=== PATIENT | male | born 1985 | race African-American/Black ===

== ENCOUNTER 2018-04-23 17:48 | Inpatient (IN) | payer OTHER ==
[~2018-04-23] VITALS: Ht 165.1 cm; Wt 71.8 kg
[2018-04-23] VITALS (10 sets, daily range): BP systolic 115–135; BP diastolic 71–109
--- NOTE | ~2018-04-23 | D ---
[facility] [place] [address] DISCHARGE SUMMARY Name: MIKE GROSSMAN Room #: 208-P [facility] IN M.R.#: [id number] Admission: 04/23/18 Attend Phys: Emmanuel Tucker Discharge: 04/24/18 Date of : 81 Report #: [id number] THIS REPORT FOR: //name// CC: Emmanuel Tucker NO PCP DATE OF SERVICE: 04/24/2018 ADMITTING DIAGNOSIS: OR-zbrrsxh-waztfufox myocardial infarction. DISCHARGE DIAGNOSES: 1. CX-vkvfmat-oozwdgxyg myocardial infarction. 2. 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 PROCEDURE PERFORMED: Left heart catheterization. DISCHARGE MEDICATIONS: 1. Aspirin 325 daily. 2. Plavix 75 mg daily. 3. Atorvastatin 80 mg daily. 4. Toprol-XL 25 mg daily. 5. Isosorbide mononitrate 30 mg daily. 6. Sublingual nitroglycerin p.r.n. FOLLOWUP: Dr. Tucker in 3 days. DISCHARGE DIET: [place] [employer] step 1 diet (discussed with the patient). BRIEF CLINICAL HISTORY: See history and physical in the chart. HOSPITAL COURSE: The patient was admitted to the hospital and underwent coronary angiography. The culprit lesion for his presentation was a small nonrevascularizable high-grade lesion in the distal circumflex posterior wall branch. In view of this, he was treated medically with Integrilin, dual antiplatelet therapy. He was initiated on standard treatment. YAHAIRA inhibition was not initiated due to the presence of normal left ventricular function and an inferior wall location. He was allowed to ambulate without difficulty. His pain resolved post-catheterization and he was ambulated without any limitations. Discussions of persistent hospitalization and symptom limited treadmill study was discussed with the patient who felt that he just needed to get out today. Echocardiogram demonstrated no significant wall motion abnormalities and normal contractility. In view of that and in view of his agreement with the followup on Thursday of this coming week, he is being discharged in improved and stable condition to follow up with previous stated instructions and medications. It was discussed with him at length that even though statins have been initiated at [address] [address] DISCHARGE SUMMARY Name: CHAUNCEYMIKE Room #: 208-P [facility] IN M.R.#: [id number] Admission: 04/23/18 Attend Phys: Emmanuel Tucker Discharge: 04/24/18 Date of : 81 Report #: [id number] a high intensity, he clearly will need PSK9 inhibitor therapy to get his LDLs to target. <ELECTRONICALLY SIGNED> By: Emmanuel Tucker MD 04/25/18 0029 1846 0025 Emmanuel Tucker MD /nt
--- NOTE | ~2018-04-23 | H ---
[facility] [place] [address] HISTORY AND PHYSICAL Name: MIKE GROSSMAN Room #: 208-P ADM IN M.R.#: [id number] Admission: 04/23/18 Attend Phys: Emmanuel Tucker Discharge: Date of : 81 Report #: [id number] THIS REPORT FOR: //name// CC: Emmanuel Tucker NO PCP HISTORY OF PRESENT ILLNESS: This is a very pleasant 32-year-old gentleman who was in his state of good health until this afternoon when developed retrosternal discomfort. The patient said he had just been walking from the mailbox when he had a sharp sensation and became a tightness. This is a discomfort he had never had before. He is very active and he does monitor his diet and tries to eat healthy. He does exercise aerobically and with weights weekly and never had any similar discomfort. He had some shortness of breath and upon presentation to the Emergency Room, was given sublingual nitroglycerin. The patient's symptoms resolved and he felt much better. Presentation EKG demonstrated ST-segment elevation inferiorly with some lateral extension. No reciprocal changes were present. Upon questioning, he does not describe a family history, although he is unaware of his estranged biological father's history. He had been treated in the past for dyslipidemia but was discontinued from medications by primary care when his "cholesterol got better." He denies any orthopnea, PND, syncope, near-syncope, chest pain, pressure, tightness, heaviness or fullness any other times. PAST MEDICAL HISTORY: 1. Remote history of smoking intermittently. 2. Dyslipidemia. SOCIAL HISTORY: The patient smokes occasionally. He consumes alcohol socially. He tries to eat healthy and exercises regularly. FAMILY HISTORY: Significant for no major cardiovascular history on the maternal side. The biological paternal side is unknown. ELECTROCARDIOGRAM: Normal sinus rhythm, ST-segment elevations in the inferior and inferolateral leads are noted. LABORATORY DATA: Initial troponin of 17.62. Potassium 3.4. BUN and creatinine are 8 and 1.2. Estimated GFR is 69. H and H is 16.2 and 45.0 with a platelet count of 249,000. Sed rate is pending. ALLERGIES: No known drug allergies. REVIEW OF SYSTEMS: Except for symptoms previously mentioned and those commensurate with comorbid state, the 10-point review of system is negative. PHYSICAL EXAMINATION: GENERAL: Well-developed, well-nourished male, resting comfortably in [address] [address] HISTORY AND PHYSICAL Name: MIKE GROSSMAN Room #: 208-P [facility]#: [id number] Admission: 04/23/18 Attend Phys: Emmanuel Tucker Discharge: Date of : 81 Report #: [id number] distress. VITAL SIGNS: At present noted in the chart. HEENT: Normocephalic, atraumatic. Pupils are equal, round, reactive to light and accommodation. Extraocular muscles are intact. Sclerae and conjunctivae are anicteric. NECK: JVD is normal. Carotid upstrokes are bilaterally symmetrical. No bruits are heard. No thyromegaly. No lymphadenopathy. LUNGS: Clear to auscultation. No wheezes, rhonchi or crackles. No CVA tenderness. CARDIAC: Demonstrates a regular rhythm. Normal first and second heart sounds. No ventricular or atrial gallops, no rubs noted. No murmurs. No lifts or heaves, PMI normal. ABDOMEN: Soft, nontender, nondistended. Normal bowel sounds. EXTREMITIES: Without cyanosis, clubbing or edema. Distal pulses are intact. DTR symmetrical. NEUROLOGIC: Cranial nerves 2-12 are grossly normal and symmetrical. PSYCHIATRIC: Alert, oriented with normal affect. SKIN: Warm and dry. IMPRESSION: 1. ST-segment elevation myocardial infarction involving the inferior leads. Even though the patient is young and appears to have only minimal risk factors, it is clearly a change in his status, which added to the abnormal ECG warranted minimum a cardiac catheterization. Discussed the risks, complications and alternatives of catheterization; angioplasty; conscious sedation to the patient and he voices understanding and wishes to proceed. We will proceed directly for acute catheterization and possible intervention. 2. Tobacco use. I discussed the need for smoking cessation with the patient and he does voice understanding that he just does it socially and it should not be an issue. 3. Dyslipidemia. I am wanting to get a fasting lipid in the morning but in the meantime, we will initiate high dose statin based on ECG and history. <ELECTRONICALLY SIGNED> By: Emmanuel Tucker MD 04/24/182008 15 25 Emmanuel Tucker MD /nt
--- NOTE | ~2018-04-23 | 2DMMODE ---
[facility] [address] [place] [address] 2 D/M-MODE ECHOCARDIOGRAM Name: MIKE GROSSMAN Room #: 208-P ADM IN M.R.#: [id number] Admission: 04/23/18 Attend Phys: Emmanuel Esparza Discharge: Date of : 81 Date of Service: 04/24/18 1633 Report #: [id number] THIS REPORT FOR: //name// APPROVED REPORT Study performed: 04/24/2018 12:43:00 EXAM: Comprehensive 2D, Doppler, and color-flow Echocardiogram Patient Location: Bedside Room #: 208 Status: routine BSA: 1.79 HR: 69 bpm BP: 121/72 mmHg Rhythm: NSR Other Information Study Quality: Good Indications Non STEMI HLD 2D Dimensions LVEF(%): 57.58 (>50%) IVSd: 7.36 (7-11mm) LVOT Diam: 20.56 (18-24mm) LVDd: 55.56 mm PWd: 9.77 (7-11mm) LVDs: 38.53 (25-40mm) Left Atrium: 35.81 (27-40mm) Aortic Root: 27.63 mm IVC: 23.00 mm Aguilera's LVEF: 57.58 % Volumes Left Atrial Volume (Systole) Single Plane 4CH: 56.48 mL Single Plane 2CH: 46.04 mL LA ESV Index: 30.00 mL/m2 Aortic Valve AoV Peak Jhonatan.: 1.49 m/s AO Peak Gr.: 8.92 mmHg AO Mean Gr.: 5.39 mmHg AO V2 Mean: 1.12 m/s AO V2 VTI: 31.44 cm [facility] [address] [address] 2 D/M-MODE ECHOCARDIOGRAM Name: MIKE GROSSMAN Room #: 208-P [facility]#: [id number] Admission: 04/23/18 Attend Phys: Emmanuel Esparza Discharge: Date of : 81 Date of Service: 04/24/18 1633 Report #: [id number] Mitral Valve E/A Ratio: 1.5 MV Decel. Time: 133.93 ms MV E Max Jhonatan.: 0.80 m/s MV A Jhonatan.: 0.53 m/s MV PHT: 38.84 ms IVRT: 83.04 ms Pulmonary Valve PV Peak Jhonatan.: 0.99 m/s PV Peak Gr.: 3.92 mmHg Pulmonary Vein P Vein S: 0.42 m/s P Vein A: 0.24 m/s P Vein D: 0.41 m/s P Vein A Dur.: 96.9 msec P Vein S/D Ratio: 1.02 Tricuspid Valve TR Peak Jhonatan.: 2.35 m/s RAP Estimate: 5.00 mmHg TR Peak Gr.: 22.03 mmHg PA Pressure: 27.00 mmHg Left Ventricle The left ventricle is normal size. There is normal left ventricular wall thickness. The left ventricular systolic function is normal. The left ventricular ejection fraction is within the normal range. LVEF is 55-60%. The left ventricular diastolic function is normal. Right Ventricle The right ventricle is normal size. The right ventricular systolic function is normal. Atria The left atrium size is normal. The right atrium size is normal. Aortic Valve The aortic valve is normal in structure. No aortic regurgitation is present. There is no aortic valvular stenosis. Mitral Valve The mitral valve is normal in structure. There is no mitral valve regurgitation noted. No evidence of mitral valve stenosis. Tricuspid Valve The tricuspid valve is normal in structure. There is no tricuspid valve regurgitation noted. Estimated PAP [address] [address] 2 D/M-MODE ECHOCARDIOGRAM Name: MIKE GROSSMAN Room #: 208-P [facility] IN M.R.#: [id number] Admission: 04/23/18 Attend Phys: Emmanuel Esparza Discharge: Date of : 81 Date of Service: 04/24/18 1633 Report #: [id number] Pulmonic Valve The pulmonary valve is normal in structure. There is no pulmonic valvular regurgitation. Great Vessels The aortic root is normal in size. IVC is normal in size and collapses >50% with inspiration. Pericardium No pericardial effusion. <Conclusion> The left ventricle is normal size. LVEF is 55-60%. The aortic valve is normal in structure. The mitral valve is normal in structure. The tricuspid valve is normal in structure. The pulmonary valve is normal in structure. No pericardial effusion. <ELECTRONICALLY SIGNED> By: Emmanuel Tucker MD 04/24/18 1633 1633 1633 Emmanuel Tucker MD /INF
--- NOTE | ~2018-04-23 | EKG ---
[place] [address] [facility] [facility] [place] [address] ELECTROCARDIOGRAM REPORT Name: MIKE GROSSMAN Room #: 208-P DIS IN M.R.#: [id number] Admission: 04/23/18 Attend Phys: Emmanuel Tucker Discharge: 04/24/18 Date of : 81 Report #: [id number] THIS REPORT FOR: //name// [facility] ED Test Date: 2018-04-23 Test Time: 18:11:02 Pat Name: MIKE GROSSMAN Department: Patient ID: [id number]- Room: Gender: M Dinkey Driver: aj : 1985 Requested By: Lovely Calvin Order Number: [id number] MD: William Luna Measurements Intervals [place] Rate: 77 P: 47 TX: 141 QRS: 33 QRSD: 100 T: 67 QT: 387 QTc: 438 Interpretive Statements Sinus rhythm Probable left atrial enlargement Inferior infarct, acute (RCA) Lateral leads are also involved No previous ECG available for comparison Electronically Signed On 04-25-2018 15:24:11 CDT by William Luna [email or web address] <ELECTRONICALLY SIGNED> By: William Luna MD, [facility] 04/25/18 1524 D: [id number] 10 William Luna MD, FACC /EPI
[2018-04-23 18:29] LABS: ABSOLUTE NEUTROPHILS 5.5 thou/uL (1.4-8.2); BASOPHILS 0.9 % (0.0-2.0); EOSINOPHILS 2.1 % (0.0-3.0); HEMOGLOBIN 16.2 gm/dL (14.0-18.0); LYMPHOCYTES 24.7 % (24.0-44.0); MCH 33.2 pg (26.0-34.0); MCHC 36.1 g/dL (28.0-37.0); MCV 92.2 fL (80.0-100.0); MONOCYTES 4.3 % (1.0-8.0); PLATELET COUNT 249 thou/uL (150-400); RBC 4.88 mil/uL (4.50-6.00); RDW 14.3 % (10.5-14.5); WBC 8.1 thou/uL (4.0-11.0)
[2018-04-23 18:36] LABS: CALCIUM 8.9 mg/dL (8.5-10.1); CREATININE 1.2 mg/dL (0.7-1.3); POTASSIUM 3.4 mmol/L (3.5-5.1)
[2018-04-23 18:45] LABS: APTT 28.2 Seconds (24.5-32.8); PROTIME 10.3 Seconds (9.3-11.4)
[2018-04-23 18:50] LABS: TROPONIN-I 17.62 ng/mL (<0.06)
[2018-04-24] VITALS (9 sets, daily range): BP systolic 114–132; BP diastolic 63–84
[2018-04-24 05:33] LABS: CHOLESTEROL 404 mg/dL (<200); HDL CHOLESTEROL 37 mg/dL (>40); LDL CHOLESTEROL 339 mg/dL (<100); TC:HDL 10.9 Ratio (Not establshd); TRIGLYCERIDE 144 mg/dL (<150); VLDL 29 mg/dL (<40)
[2018-04-24 05:56] LABS: SERUM ASSESSMENT Clear
[2018-04-24 07:03] LABS: TROPONIN-I 189.17 ng/mL (<0.06)
[2018-04-24 09:46] LABS: AMP/METHAMP Negative (Negative); BARBITURATES Negative (Negative); BENZODIAZEPINES POSITIVE (Negative); COCAINE Negative (Negative); METHADONE Negative (Negative); OPIATES POSITIVE (Negative); PCP Negative (Negative)
== END 2018-04-24 20:12 | disposition home or self-care (01) | DRG 282 ==
LOC: ER 17:48 → EROBS 18:25 → 2N 20:26
PROVIDERS: Emergency Medicine; Internal Medicine
PROC: B2111ZZ Fluoroscopy of Multiple Coronary Arteries using Low Osmolar Contrast (ICD-10-PCS; principal; 2018-04-24)
PROC: 4A023N7 Measurement of Cardiac Sampling and Pressure, Left Heart, Percutaneous Approach (ICD-10-PCS; principal; 2018-04-24)
DX: I21.19 ST elevation (STEMI) myocardial infarction involving other coronary artery of inferior wall (principal); E78.5 Hyperlipidemia, unspecified; E78.00 Pure hypercholesterolemia, unspecified; Z82.49 Family history of ischemic heart disease and other diseases of the circulatory system; Z79.899 Other long term (current) drug therapy
CPT/HCPCS: 10194